=== PATIENT | female | born 2000 | race Hispanic/Latino ===

== ENCOUNTER 2022-12-18 16:37 | Emergency (ER) | payer MEDICAID ==
[~2022-12-18] VITALS: Ht 170.2 cm; Wt 59.9 kg
[2022-12-18] MEDS ORDERED: DEXAMETHASONE SOD PHOSPHATE 4 MG/ML 1ML VIAL IM ONE (18:00)
[2022-12-18] MEDS ORDERED: METH4TAB3 PO (18:06)
[2022-12-18 18:18] VITALS: BP 115/72
== END 2022-12-18 18:26 | disposition home or self-care (01) ==
LOC: EDH 16:37
DX: L23.9 Allergic contact dermatitis, unspecified cause (principal)
CPT/HCPCS: 99283; 96372; J1100